=== PATIENT | female | born 1945 | race Caucasian/White ===

== ENCOUNTER → 2016-06-07 | Outpatient (CLI) | payer OTHER | LOC: FIMAGING 15:22 | PROVIDERS: ATTEND Internal Medicine | DX: Z12.31 Encounter for screening mammogram for malignant neoplasm of breast (principal); Z13.820 Encounter for screening for osteoporosis; M81.0 Age-related osteoporosis without current pathological fracture; R29.890 Loss of height; Z82.62 Family history of osteoporosis; E03.9 Hypothyroidism, unspecified; Z79.899 Other long term (current) drug therapy; Z78.0 Asymptomatic menopausal state | CPT/HCPCS: G0202 ==

== ENCOUNTER 2016-10-02 11:28 | Emergency (ER) | payer OTHER ==
--- NOTE | 2016-10-02 12:05 | EDPHY ---
HPI/HX/ROS/PE/MDM Narrative: CHIEF COMPLAINT: Left leg swelling HPI: This patient is an otherwise healthy 71-year-old female who presents to the Emergency Department complaining of left lower extremity swelling and pain beginning after she arrived home from [facility]. She complains of pain localized to her left calf with radiation superiorly to the posterior aspect of her left thigh. She denies any additional complaints; no shortness of breath or chest pain. She denies history of blood clots but does have a familial history of blood clots in mother and siblings. REVIEW OF SYSTEMS: Aside from elements discussed in the HPI, a comprehensive 10-point review of systems was reviewed and is negative. PMH: Chronic neck pain. No history of blood clots. SOCIAL HISTORY: at bedside. Just returned home from [facility]. PHYSICAL EXAM: General:Patient is alert, in no acute distress. ENT:Eyes are normal to inspection. ENT inspection normal. Neck: Normal inspection. Full range of motion. Respiratory:No respiratory distress. Breath sounds normal bilaterally. Cardiovascular: Regular rate and rhythm. Strong peripheral pulses. Normal cap refill. Abdomen:The abdomen is nontender to palpation. There are no peritoneal signs. There are normal bowel sounds. Back: Normal to inspection. No tenderness to palpation. Skin: Normal color. No rash. Warm and dry. Extremities: Full range of motion. Left lower extremity swollen and erythematous compared to right with 1+ pitting edema. Neuro: Oriented x3. Normal motor function. Normal sensory function. ED Course: 71-year-old female presents complaining of pain and swelling to her left lower extremity first presenting just after a long flight home from [facility]. Family history is positive for blood clots in mother and siblings. On exam, her left lower extremity is edematous and erythematous. She has no other significant findings on exam and denies pulmonary involvement; no SOB or chest pain. Will proceed with US of the left lower extremity. 1459: US is negative for DVT as read by Dr. Laguerre. I discussed imaging result with the patient. She will be given Ibuprofen and Tylenol instructions and plan to follow-up with her primary care provider for reevaluation. The patient is agreeable to this and will be discharged home in good condition. MDM: This patient presents with LLE swelling and mild pain after a recent long flight. Thankfully, her US is negative for DVT. The etiology of her leg symptoms is unknown, but there is no evidence of DVT, infection, arterial insufficiency or rash. We discussed strict return precautions and compression stocking usage. General Time Seen by Provider: 10/02/16 11:44 Initial Vital Signs: Initial Vital Signs Temperature (C) 36.8 C 10/02/16 11:32 Heart Rate 78 10/02/16 11:32 Respiratory Rate 16 10/02/16 11:32 Blood Pressure 118/80 10/02/16 11:32 O2 Sat (%) 95 10/02/16 11:32 O2 Delivery Mode Room Air Allergies/Adverse Reactions: meperidine HCl [From Demerol] Allergy (Unknown, Verified 10/03/16 06:57) morphine Allergy (Unknown, Verified 10/03/16 06:57) Home Medications: Medication Instructions Recorded Levothyroxine [Synthroid 100 mcg 100 mcg PO DAILY 04/19/12 (*)] Herbals/Supplements -Info Only 1 ea PO DAILY 10/03/16 Naproxen Sodium [Aleve 220 MG (*)] 220 mg PO DAILY PRN 10/03/16 Sertraline HCl [Zoloft 100mg (*)] 50 mg PO BID 10/03/16 clonazePAM [Klonopin (*)] 0.5 mg PO HS 10/03/16 Departure - Departure Disposition: Home, Routine, Self-Care Clinical Impression: Left leg swelling Condition: Good Instructions: Leg Edema (ED) Additional Instructions: 1. You should expect your swelling to improve over the next few days. I recommend that you follow-up with your primary care provider in 2-3 days for reevaluation. If you do not have a PCP, we have referred you to our on-call provider. 2. Take 600mg Ibuprofen every 6 hours as needed for swelling and pain. 3. Return to the Emergency Department with increased pain or swelling, shortness of breath, chest pain, or other serious concerns. Referrals: Luz Marina Joya MD [Medical Doctor] - As per Instructions Report Scribed for: Crispin Guido Report Scribed by: Marsha Galvez Date of Report: 10/02/16 Time of Report: 12:03 Physician Review and Approval Statement: Portions of this note were transcribed by an ED scribe. I personally performed the history, physical exam, and medical decision making; and confirm the accuracy of the information in the transcribed note.
[2016-10-02 15:09] VITALS: BP 132/79; PULSE 67; RESP 20; TEMP 97.5; O2SAT 97
== END 2016-10-02 15:09 | disposition home or self-care (01) ==
DX: M79.89 Other specified soft tissue disorders (principal)

== ENCOUNTER 2016-10-03 06:45 | Inpatient (IN) | payer OTHER ==
--- NOTE | 2016-10-03 06:57 | EDPHY ---
H & P Time Seen by Provider: 10/03/16 06:53 HPI/ROS: CHIEF COMPLAINT: Left leg pain, swelling HISTORY OF PRESENT ILLNESS: This patient is a 71 year old female complaining of left lower extremity swelling and pain onset three days ago, after returning from [facility] by plane. She was seen here yesterday for the same complaint. Lower extremity ultrasound was negative and the patient was discharged home. She was unable to sleep well last night because of moderate left leg pain. She took Aleve and elevated her leg, but the pain did not resolve. The pain radiates from her groin to her foot , and her leg becomes more red and swollen with walking. She states it is very difficult to walk due to leg pain. She denies chest pain, shortness or breath, or other associated symptoms. She denies personal history of blood clots, but does have family history of thromboembolism. REVIEW OF SYSTEMS: Constitutional: No fever, no chills Eyes: No visual changes ENT: No sore throat Respiratory: No cough, no shortness of breath Cardiac: No chest pain Gastrointestinal: no vomiting, no abdominal pain Genitourinary: no dysuria Skin: No rash Neurological: No headache, no numbness, no weakness Psychiatric: No depression Past Medical/Surgical History: Chronic neck pain Social History: Lives in own home with Smoking Status: Former smoker Physical Exam: General Appearance: Alert, pleasant, appears uncomfortable with leg movement Eyes: Pupils equal and round, no conjunctival pallor or injection ENT, Mouth: Mucous membranes moist Neck: Normal inspection Respiratory: Lungs are clear to auscultation Cardiovascular: Regular rate and rhythm Gastrointestinal: Abdomen is soft and non-tender Neurological: A&O, nonfocal, normal gait Skin: Warm and dry, no rash Extremities: Left leg diffusely edematous and tender, very slight erythema over the thigh, the leg is warm, other extremities nontender Vascular: 2+ dorsalis pedis pulse in the left lower extremity, unable to palpate the posterior tibial artery Psychiatric: Mood and affect normal Constitutional: Initial Vital Signs Temperature (C) 36.7 C 10/03/16 06:58 Heart Rate 71 10/03/16 06:58 Respiratory Rate 16 10/03/16 06:58 Blood Pressure 130/89 H 10/03/16 06:58 O2 Sat (%) 99 10/03/16 06:58 O2 Delivery Mode Room Air Allergies/Adverse Reactions: meperidine HCl [From Demerol] Allergy (Unknown, Verified 10/03/16 06:57) morphine Allergy (Unknown, Verified 10/03/16 06:57) Home Medications: Medication Instructions Recorded Levothyroxine [Synthroid 100 mcg 100 mcg PO DAILY 04/19/12 (*)] Herbals/Supplements -Info Only 1 ea PO DAILY 10/03/16 Naproxen Sodium [Aleve 220 MG (*)] 220 mg PO DAILY PRN 10/03/16 Sertraline HCl [Zoloft 100mg (*)] 50 mg PO BID 10/03/16 clonazePAM [Klonopin (*)] 0.5 mg PO HS 10/03/16 Medical Decision Making - Diagnostics Imaging Results: Imaging Impressions Extremity Venous Study 10/03/16 07:18 Impression: Deep venous thrombosis in the left external iliac and central aspect of the common femoral vein resulting in Rouleaux flow in the femoral vein. Findings discussed with Emergency Department physician, Glenna Ayala on October 03, 2016 at 8:30 a.m. ED Course/Re-evaluation: The vein access technician reviewed the ultrasound study from yesterday. The ultrasound reveals a superficial blood clot in the greater saphenous vein. I suspect this patient either has a DVT that was undetected on the prior ultrasound or that she has an arterial clot. Given that she has a warm leg and 2+ dorsalis pedis pulse, I will start with a repeat ultrasound of the left lower extremity. If the study is negative, will proceed to arteriogram. 8:[address] Laguerre, radiologist. US reveals deep venous thrombosis in the left external iliac and central aspect of the common femoral vein resulting in Rouleaux flow in the femoral vein. The patient feels too unsteady to go home due to severe left leg pain[place]. Plan to admit for further management of DVT. Lovenox 80 mg subcu given. No clinical suspicion of pulmonary embolism. 8:35 Consulted with hospitalist service. Dr. Sagastume accepts admission for DVT. Differential Diagnosis: Differential diagnosis includes does not limited to acute arterial occlusion, cellulitis, joint infection, osteomyelitis. - Data Points Laboratory Results: Laboratory Results 10/03/16 07:25 10/03/16 07:25 10/03/16 10/03/16 07:25 07:25 WBC 7.99 10^3/uL 10^3/uL (3.80-9.50) RBC 4.66 10^6/uL 10^6/uL (4.18-5.33) Hgb 14.5 g/dL g/dL (12.6-16.3) Hct 42.7 % % (38.0-47.0) MCV 91.6 fL fL (81.5-99.8) MCH 31.1 pg pg (27.9-34.1) MCHC 34.0 g/dL g/dL (32.4-36.7) RDW 12.5 % % (11.5-15.2) Plt Count 151 10^3/uL 10^3/uL (150-400) MPV 10.3 fL fL (8.7-11.7) Neut % (Auto) 66.2 % % (39.3-74.2) Lymph % (Auto) 20.9 % % (15.0-45.0) Lander % (Auto) 7.1 % % (4.5-13.0) Eos % (Auto) 4.5 % % (0.6-7.6) Baso % (Auto) 0.9 % % (0.3-1.7) Nucleat RBC Rel Count 0.0 % % (0.0-0.2) Absolute Neuts (auto) 5.29 10^3/uL 10^3/uL (1.70-6.50) Absolute Lymphs (auto) 1.67 10^3/uL 10^3/uL (1.00-3.00) Absolute Monos (auto) 0.57 10^3/uL 10^3/uL (0.30-0.80) Absolute Eos (auto) 0.36 10^3/uL 10^3/uL (0.03-0.40) Absolute Basos (auto) 0.07 10^3/uL 10^3/uL (0.02-0.10) Absolute Nucleated RBC 0.00 10^3/uL 10^3/uL (0-0.01) Immature Gran % 0.4 % % (0.0-1.1) Immature Gran # 0.03 10^3/uL 10^3/uL (0.00-0.10) Sodium 141 mEq/L mEq/L (134-144) Potassium 4.5 mEq/L mEq/L (3.5-5.2) Chloride 107 mEq/L mEq/L (97-110) Carbon Dioxide 20 mEq/l L mEq/l (22-31) Anion Gap 14 mEq/L mEq/L (8-16) BUN 20 mg/dL mg/dL (7-23) Creatinine 1.1 mg/dL H mg/dL (0.6-1.0) Estimated GFR 49 Glucose 91 mg/dL mg/dL (70-100) Calcium 9.3 mg/dL mg/dL (8.5-10.4) Medications Given: Discontinued Medications Acetaminophen (Tylenol) 650 mg PO EDNOW ONE Stop: 10/03/16 08:35 Last Admin: 10/03/16 09:04 Dose: 650 mg Enoxaparin Sodium (Lovenox) 80 mg SC EDNOW ONE Stop: 10/03/16 08:35 Last Admin: 10/03/16 10:01 Dose: 80 mg Departure - Departure Disposition: [facility] Inpatient Acute Clinical Impression: DVT (deep venous thrombosis) Qualifiers: DVT location: lower extremity Affected thrombotic vein of extremity: iliac Chronicity: acute Laterality: left Qualified Code(s): I82.422 - Acute embolism and thrombosis of left iliac vein Condition: Good Report Scribed for: Glenna Ayala Report Scribed by: Zuleyka Romero Date of Report: 10/03/16 Time of Report: 07:02 Physician Review and Approval Statement: 10/03/16 08:37 Portions of this note were transcribed by a director of medical staff services. I personally performed a history, physical exam, medical decision making, and confirmed accuracy of information the transcribed note.
[2016-10-03 07:40] LABS: % IMMATURE GRANULYOCYTES 0.4 % (0.0-1.1); ABSOLUTE IMMATURE GRANULOCYTES 0.03 10^3/uL (0.00-0.10); ADD DIFF? NO; ADD MORPH? NO; ADD SCAN? NO; ATYPICAL LYMPHOCYTE FLAG 10 (0-99); FRAGMENT RBC FLAG 0 (0-99); HEMATOCRIT 42.7 % (38.0-47.0); HEMOGLOBIN 14.5 g/dL (12.6-16.3); LEFT SHIFT FLG 0 (0-99); LIPEMIA HEMOLYSIS FLAG 90 (0-99); MEAN CELL HEMOGLOBIN 31.1 pg (27.9-34.1); MEAN CELL VOLUME 91.6 fL (81.5-99.8); MEAN PLATELET VOLUME 10.3 fL (8.7-11.7); PLATELET CLUMPS FLAG 0 (0-99); PLATELET COUNT 151 10^3/uL (150-400); RED BLOOD CELL COUNT 4.66 10^6/uL (4.18-5.33); RED CELL DISTRIBUTION WIDTH 12.5 % (11.5-15.2)
[2016-10-03 07:58] LABS: ANION GAP 14 mEq/L (8-16); CALCIUM 9.3 mg/dL (8.5-10.4); CARBON DIOXIDE 20 mEq/l (22-31); CHLORIDE 107 mEq/L (97-110); CREATININE 1.1 mg/dL (0.6-1.0); GLOMERULAR FILTRATION RATE 49; GLUCOSE 91 mg/dL (70-100); POTASSIUM 4.5 mEq/L (3.5-5.2); SODIUM 141 mEq/L (134-144)
[2016-10-03] MEDS ORDERED: ENOXAPARIN 80 MG/0.8 ML SYR SC ONE (08:34)
[2016-10-03] MEDS ORDERED: ACETAMINOPHEN 325 MG TAB PO ONE (08:34)
[2016-10-03] MEDS ORDERED: ONDANSETRON 4 MG/2 ML VIAL IVP PRN (10:43)
[2016-10-03] MEDS ORDERED: ONDANSETRON DISINTEGRATING 4 MG TAB PO PRN (10:43)
[2016-10-03] MEDS ORDERED: ACETAMINOPHEN 325 MG TAB PO PRN (10:43)
[2016-10-03] MEDS ORDERED: traMADol 50 MG TAB PO PRN (10:45)
--- NOTE | 2016-10-03 10:47 | PDGENHP ---
History and Physical - Chief Complaint LE pain and swelling - History of Present Illness 71 yo female presented to ED last night with LLE pain and swelling. She traveled home from [facility] 3 days ago. She noticed after getting off the plane , her left leg was swollen and painful. U/S yesterday was negative for DVT and she was discharged home. She returned today due to worsening pain and difficulty with ambulation. Repeat u/s today confirmed proximal LLE DVT in iliac and femoral veins. She denies CP, SOB or fevers. No abdominal pain, N/V/ D or changes in her bowel or bladder habits. Given her pain and swelling, she is admitted to the hospital for further management. History Information - Allergies/Home Medication List Allergies/Adverse Reactions: meperidine HCl [From Demerol] Allergy (Unknown, Verified 10/03/16 06:57) morphine Allergy (Unknown, Verified 10/03/16 06:57) Home Medications: Levothyroxine [Synthroid 100 mcg (*)] 100 mcg PO DAILY 04/19/12 [Last Taken 06/17] Herbals/Supplements -Info Only 1 ea PO DAILY 10/03/16 [Last Taken Unknown] Naproxen Sodium [Aleve 220 MG (*)] 220 mg PO DAILY PRN 10/03/16 [Last Taken 06/17 03:00] Sertraline HCl [Zoloft 100mg (*)] 50 mg PO BID 10/03/16 [Last Taken 10/03/16] clonazePAM [Klonopin (*)] 0.5 mg PO HS 10/03/16 [Last Taken 10/02/16] I have personally reviewed and updated: family history, medical history, social history, surgical history - Past Medical History Additional medical history: Hypothyroidism, depression/anxiety - Surgical History Additional surgical history: meniscus repair - Family History Additional family history: mom and 2 brothers with factor V leiden - Social History Smoking Status: Former smoker Alcohol Use: Rarely Drug Use: None 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 Review of Systems ROS: 10pt was reviewed & negative except for what was stated in HPI & below Physical Exam Temp Pulse Resp BP Pulse Ox 36.4 C 66 16 120/70 95 10/03/16 10:10 10/03/16 10:10 10/03/16 10:10 10/03/16 10:10 10/03/16 10:10 Constitutional: no apparent distress Eyes: PERRL Ears, Nose, Mouth, Throat: moist mucous membranes Cardiovascular: regular rate and rhythym, no murmur, rub, or gallop Respiratory: no respiratory distress, clear to auscultation Gastrointestinal: normoactive bowel sounds, soft, non-tender abdomen Skin: warm Musculoskeletal: other (LLE swelling from groin to foot. 2+ DP pulse, extremities warm, well perfused) Neurologic: AAOx3 Psychiatric: interacting appropriately Lab Data & Imaging Review 10/03/16 07:25 10/03/16 07:25 WBC 7.99 10^3/uL (3.80-9.50) 10/03/16 07:25 RBC 4.66 10^6/uL (4.18-5.33) 10/03/16 07:25 Hgb 14.5 g/dL (12.6-16.3) 10/03/16 07:25 Hct 42.7 % (38.0-47.0) 10/03/16 07:25 MCV 91.6 fL (81.5-99.8) 10/03/16 07:25 MCH 31.1 pg (27.9-34.1) 10/03/16 07:25 MCHC 34.0 g/dL (32.4-36.7) 10/03/16 07:25 RDW 12.5 % (11.5-15.2) 10/03/16 07:25 Plt Count 151 10^3/uL (150-400) 10/03/16 07:25 MPV 10.3 fL (8.7-11.7) 10/03/16 07:25 Neut % (Auto) 66.2 % (39.3-74.2) 10/03/16 07:25 Lymph % (Auto) 20.9 % (15.0-45.0) 10/03/16 07:25 Yell % (Auto) 7.1 % (4.5-13.0) 10/03/16 07:25 Eos % (Auto) 4.5 % (0.6-7.6) 10/03/16 07:25 Baso % (Auto) 0.9 % (0.3-1.7) 10/03/16 07:25 Nucleat RBC Rel Count 0.0 % (0.0-0.2) 10/03/16 07:25 Absolute Neuts (auto) 5.29 10^3/uL (1.70-6.50) 10/03/16 07:25 Absolute Lymphs (auto) 1.67 10^3/uL (1.00-3.00) 10/03/16 07:25 Absolute Monos (auto) 0.57 10^3/uL (0.30-0.80) 10/03/16 07:25 Absolute Eos (auto) 0.36 10^3/uL (0.03-0.40) 10/03/16 07:25 Absolute Basos (auto) 0.07 10^3/uL (0.02-0.10) 10/03/16 07:25 Absolute Nucleated RBC 0.00 10^3/uL (0-0.01) 10/03/16 07:25 Immature Gran % 0.4 % (0.0-1.1) 10/03/16 07:25 Immature Gran # 0.03 10^3/uL (0.00-0.10) 10/03/16 07:25 Sodium 141 mEq/L (134-144) 10/03/16 07:25 Potassium 4.5 mEq/L (3.5-5.2) 10/03/16 07:25 Chloride 107 mEq/L (97-110) 10/03/16 07:25 Carbon Dioxide 20 mEq/l (22-31) L 10/03/16 07:25 Anion Gap 14 mEq/L (8-16) 10/03/16 07:25 BUN 20 mg/dL (7-23) 10/03/16 07:25 Creatinine 1.1 mg/dL (0.6-1.0) H 10/03/16 07:25 Estimated GFR 49 10/03/16 07:25 Glucose 91 mg/dL (70-100) 10/03/16 07:25 Calcium 9.3 mg/dL (8.5-10.4) 10/03/16 07:25 Assessment & Plan Assessment: DVT (deep venous thrombosis) (Acute) - Proximal LLE. She has risk factor of long airplane ride from [place] 3 days prior to arrival. Also positive family h /o factor V Leiden. She tested negative for factor V leiden a number of years ago, though per consult with heme there is better testing now. Some concern for May Sandoval with proximal DVT. -IR consult for consideration of intra-vascular lysis -send factor V leiden mutation -Received Lovenox this am, will continue this if she decides against intervention -Discussed coumadin vs Eliquis at d/c. Pt opts for latter. -D/C Naproxen Hypothyroid - cont outpt meds Depression/Anxiety - cont zoloft and klonopin Full code Dispo - obs. If she opts for IR intervention, may require changing to inpt status tomorrow
[2016-10-03 12:03] LABS: INR 1.08 (0.83-1.16); PROTIME(PATIENT) 13.9 SEC (12.0-15.0)
[2016-10-03] MEDS ORDERED: fentaNYL 100 MCG/2 ML INJ ONE (17:04)
[2016-10-03] MEDS ORDERED: MIDAZOLAM 2 MG/2 ML VIAL ONE (17:05)
[2016-10-03] MEDS ORDERED: IOPAMIDOL (ISOVUE-300) 100 ML BTL ONE (17:27)
[2016-10-03] MEDS ORDERED: HEPARIN/DEXTROSE 25,000 UNIT/500 ML BAG ONE (17:30)
[2016-10-03] MEDS ORDERED: PROMETHAZINE HCL 25 MG/ML INJ IVP PRN (17:39)
[2016-10-03] MEDS ORDERED: LORazepam 1 MG TAB PO PRN (17:39)
--- NOTE | 2016-10-03 17:44 | POSTOPPROG ---
Post Op Note Date of Operation: 10/03/16 Surgeon: Afshan Johnson Anesthesia: IV Sedation (fentanyl and versed) Pre-op Diagnosis: LLE DVT Post-op Diagnosis: same Indication: severe leg pain with walking Procedure: venogram, tpa Lysis Findings: clotted iliac to CFV on LT. May-Thurner Syndrome Inf/Abcess present in the surg proc area at time of surgery?: No Depth: Superfical (Skin SQ) EBL: Minimal Complications: None
[2016-10-03] MEDS ORDERED: HEPARIN/DEXTROSE 500 ML IV SCH (17:45)
[2016-10-03] MEDS ORDERED: HYDROmorphONE/DILAUDID 1 MG/ML SYR IVP PRN (17:53)
[2016-10-03] MEDS ORDERED: ALTEPLASE 5 MG in NS 100 ML IVP SCH (18:00)
[2016-10-03 19:08] LABS: APTT 50.5 SEC (23.0-38.0)
[2016-10-03] MEDS: SERTRALINE HCL 100 MG TAB PO SCH (20:42)
[2016-10-03] MEDS: clonazePAM 0.5 MG TAB PO SCH (20:42)
[2016-10-03] MEDS ORDERED: ENOXAPARIN 80 MG/0.8 ML SYR SC SCH (21:00)
[2016-10-04] MEDS: ALTEPLASE 5 MG in NS 100 ML IV SCH ×2 (02:06→09:59)
[2016-10-04 05:42] LABS: % IMMATURE GRANULYOCYTES 0.4 % (0.0-1.1); ABSOLUTE IMMATURE GRANULOCYTES 0.03 10^3/uL (0.00-0.10); ADD DIFF? NO; ADD MORPH? NO; ADD SCAN? NO; ATYPICAL LYMPHOCYTE FLAG 0 (0-99); FRAGMENT RBC FLAG 0 (0-99); HEMATOCRIT 40.3 % (38.0-47.0); HEMOGLOBIN 13.8 g/dL (12.6-16.3); LEFT SHIFT FLG 0 (0-99); LIPEMIA HEMOLYSIS FLAG 90 (0-99); MEAN CELL HEMOGLOBIN 31.3 pg (27.9-34.1); MEAN CELL HEMOGLOBIN CONCENTR. 34.2 g/dL (32.4-36.7); MEAN CELL VOLUME 91.4 fL (81.5-99.8); MEAN PLATELET VOLUME 10.4 fL (8.7-11.7); PLATELET CLUMPS FLAG 0 (0-99); PLATELET COUNT 133 10^3/uL (150-400); RED BLOOD CELL COUNT 4.41 10^6/uL (4.18-5.33); RED CELL DISTRIBUTION WIDTH 12.4 % (11.5-15.2)
[2016-10-04 06:29] LABS: APTT 47.9 SEC (23.0-38.0)
[2016-10-04] MEDS: LEVOTHYROXINE 100 MCG TAB PO SCH (08:24)
[2016-10-04] MEDS: SERTRALINE HCL 100 MG TAB PO SCH ×2 (08:24→20:08)
[2016-10-04 10:59] LABS: ANION GAP 11 mEq/L (8-16); CALCIUM 8.7 mg/dL (8.5-10.4); CARBON DIOXIDE 22 mEq/l (22-31); CHLORIDE 108 mEq/L (97-110); GLOMERULAR FILTRATION RATE 55; GLUCOSE 92 mg/dL (70-100); POTASSIUM 4.4 mEq/L (3.5-5.2); SODIUM 141 mEq/L (134-144)
--- NOTE | 2016-10-04 13:07 | HOSPPROG ---
Hospitalist Progress Note Assessment/Plan: 71 yo F presenting with left leg swelling and pain after recent prolonged travel found to have extensive proximal DVT concerning for May Thurner syndrome # LLE DVT: extensive and proximal, evidence of May Thurner syndrome on venogram. TPA lysis initiated and plan for stent placement likely today. Pain and swelling continues today but improved since yesterday. Does have family hx of factor v leyden however has tested negative in the past and rechecked on arrival # August Thurner: as above had evidence of chronic narrowing and stricture of common iliac, tx as above # hypothyroid: continue home meds # depression/anxiety: euthymic, some anxiety but minimal # IP status, high risk given need for tpa driven lysis requiring ICU monitoring Patient new to my care. Old records reviewed and summarized as above. Care plan reviewed with Dr. Olivera and multidisciplinary care team on rounds. Subjective: no significant overnight events, patient anxious to have procedure completed today, she is tired of lying still Objective: Vital Signs Temp Pulse Resp BP Pulse Ox 37.0 C 84 18 125/77 H 97 10/04/16 12:00 10/04/16 12:00 10/04/16 12:00 10/04/16 12:00 10/04/16 12:00 Laboratory Results 10/04/16 05:40 10/04/16 10:35 10/03/16 10/04/16 10/05/16 05:59 05:59 05:59 Intake Total 1266 Balance 1266 PT 13.9 SEC (12.0-15.0) 10/03/16 11:49 INR 1.08 (0.83-1.16) 10/03/16 11:49 awake alert nad anicteric op clear rrr no mrg cta b to ant exam soft nt nd lle edema 2+, r no cce warm dry well perfused oriented appropriate - Time Spent With Patient Time Spent with Patient: greater than 35 minutes Time Spent with Patient: Greater than 35 minutes spent on this patients care, greater than 50% of time spent counseling, educating, and coordinating care regarding the above mentioned plan. ICD10 Worksheet Patient Problems: Problems Problem Status Onset DVT (deep venous thrombosis) Acute
[2016-10-04] MEDS ORDERED: fentaNYL 100 MCG/2 ML INJ ONE (13:16)
[2016-10-04] MEDS ORDERED: MIDAZOLAM 2 MG/2 ML VIAL ONE (13:16)
[2016-10-04] MEDS ORDERED: IOPAMIDOL (ISOVUE-300) 100 ML BTL ONE ×2 (14:04→14:55)
--- NOTE | 2016-10-04 14:28 | POSTOPPROG ---
Post Op Note Date of Operation: 10/04/16 Surgeon: Afshan Johnson Anesthesia: IV Sedation (FENTANYL AND VERSED) Pre-op Diagnosis: LLE DVT Post-op Diagnosis: same, May Thurner syndrome Indication: lysis followup Procedure: venogram, stent placement, angioplasty Findings: complete clot lysis; stenosis stented Inf/Abcess present in the surg proc area at time of surgery?: No Depth: Superfical (Skin SQ) EBL: Minimal Complications: None
[2016-10-04] MEDS: ENOXAPARIN 60 MG/0.6 ML SYR SC SCH (20:09)
[2016-10-04] MEDS: clonazePAM 0.5 MG TAB PO SCH (20:09)
[2016-10-05 08:19] VITALS: BP 135/74; PULSE 70; RESP 16; TEMP 98.3; O2SAT 97
[2016-10-05] MEDS: LEVOTHYROXINE 100 MCG TAB PO SCH (08:24)
[2016-10-05] MEDS: SERTRALINE HCL 100 MG TAB PO SCH (08:24)
[2016-10-05] MEDS: ENOXAPARIN 60 MG/0.6 ML SYR SC SCH (08:24)
--- NOTE | 2016-10-05 08:32 | SOAPPROG ---
[facility] Progress Note Assessment/Plan: Assessment: Doing well post LLE lysis and stent placement for May-Thurner Syndrome. Back on BID Lovenox. Plan: 1. Can D/C from IR standpoint. 2. Anticoagulation 3-6months. If pending hypercoagulation workup is negative, patient should be able to get off of anticoagulation with underlying cause now resolved. 10/05/16 08:30 Subjective: Much decreased pain in LLE. No complaints. Overall happy with outcome of procedure. Has tolerated PO and ambulation. Objective: Vital Signs Temp Pulse Resp BP Pulse Ox 36.8 C 70 16 135/74 H 97 10/05/16 08:00 10/05/16 08:00 10/05/16 08:00 10/05/16 08:00 10/05/16 08:00 Laboratory Results 10/04/16 05:40 10/04/16 10:35 10/04/16 10/05/16 10/06/16 05:59 05:59 05:59 Intake Total 1266 790 Balance 1266 790 PT 13.9 SEC (12.0-15.0) 10/03/16 11:49 INR 1.08 (0.83-1.16) 10/03/16 11:49 Calf swelling much better. Less tense. No bleeding. ICD10 Worksheet Patient Problems: Problems Problem Status Onset DVT (deep venous thrombosis) Acute ESBL (extended spectrum beta-lactamase) producing bacteria infection Acute ~
--- NOTE | 2016-10-05 10:42 | PDDCSUM ---
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 TPA lysis initiated and plan for stent placement likely today. Pain and swelling continues today but improved since yesterday. Does have family hx of factor v leyden however has tested negative in the past and rechecked on arrival # iliac vein occlusion: both acute and chronic occlusion, s/p angioplasty # May Thurner: as above # hypothyroid: continue home meds # depression/anxiety: euthymic, some anxiety but minimal DC home f/u with PCP, referral to hematology for follow up of hypercoagulable w/u Meds: see EHR > 45 minutes spent in dc, more than half in face to face counseling of patient and her regarding medications and follow up plan, warfarin teaching initiated
[2016-10-05] MEDS ORDERED: WARFARIN SODIUM 5 MG TAB PO SCH (16:00)
[2016-10-07 08:55] LABS: INTERPRETATION See Comments
== END 2016-10-05 11:55 | disposition home or self-care (01) | DRG 253 ==
LOC: F1N 10:07 → F2N 18:10 → OBSVTOIN 10-05 08:58
PROVIDERS: ADMIT Hospitalist; ATTEND Hospitalist
PROC: 3E03317 Introduction of Other Thrombolytic into Peripheral Vein, Percutaneous Approach (ICD-10-PCS; 2016-10-03)
PROC: 067D3DZ Dilation of Left Common Iliac Vein with Intraluminal Device, Percutaneous Approach (ICD-10-PCS; principal; 2016-10-04)
DX: I82.422 Acute embolism and thrombosis of left iliac vein (principal); I82.412 Acute embolism and thrombosis of left femoral vein; I87.1 Compression of vein; M54.2 Cervicalgia; E03.9 Hypothyroidism, unspecified; Z87.891 Personal history of nicotine dependence; F41.8 Other specified anxiety disorders; Z83.2 Family history of diseases of the blood and blood-forming organs and certain disorders involving the immune mechanism
CPT/HCPCS: C1725; C1757; C1769; C1876; C1892; G0378; J1644; J1650; J2250; J2997; J3010; Q9967

== ENCOUNTER → 2017-03-08 | Outpatient (CLI) | payer OTHER | LOC: FIMAGING 13:18 | PROVIDERS: ATTEND Registered Nurse | DX: Z86.718 Personal history of other venous thrombosis and embolism (principal); Z95.828 Presence of other vascular implants and grafts ==

== ENCOUNTER → 2017-06-21 | Outpatient (CLI) | payer OTHER | LOC: FIMAGING 07:37 | PROVIDERS: ATTEND Internal Medicine | DX: Z12.31 Encounter for screening mammogram for malignant neoplasm of breast (principal) ==

== ENCOUNTER → 2018-02-07 | Outpatient (CLI) | payer OTHER | LOC: FIMAGING 14:10 | PROVIDERS: ATTEND Internal Medicine Geriatric Medicine | DX: I82.4Z2 Acute embolism and thrombosis of unspecified deep veins of left distal lower extremity (principal) ==

== ENCOUNTER 2018-03-18 13:35 | Emergency (ER) | payer OTHER ==
--- NOTE | 2018-03-18 14:15 | EDPHY ---
H & P Stated Complaint: SOB and L arm "tingling" on and off x ~ 1 month, fatigue Time Seen by Provider: 03/18/18 13:53 HPI/ROS: CHIEF COMPLAINT: Rapid heart rate, shortness of breath HISTORY OF PRESENT ILLNESS: 72-year-old female presents with a 2 week history of intermittent rapid heart rate and shortness of breath. The rapid heart rate is intermittent, lasts several seconds and is associated with shortness of breath. No obvious alleviating or aggravating factors. No associated chest discomfort or dizziness. She has also had intermittent tingling in the left upper extremity, associated with left-sided upper back pain. The symptoms seem to be different from the shortness of breath and she has been seen at [facility]. MRI of the thoracic spine has been performed, but she does not have the results yet. History of DVT several years ago after prolonged travel. Not on anticoagulants. REVIEW OF SYSTEMS: complete 10 point ROS reviewed and is negative except for the noted elements in the HPI - Medical/Surgical History Hx Asthma: No Hx Chronic Respiratory Disease: No Hx Diabetes: No Hx Cardiac Disease: No Hx Renal Disease: No Hx Cirrhosis: No Hx Alcoholism: No Hx HIV/AIDS: No Hx Splenectomy or Spleen Trauma: No Other PMH: PSH: appy; L arm plate. 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 - Social History Smoking Status: Former smoker Alcohol Use: Sober Drug Use: None - Physical Exam Exam: General Appearance: Alert, pleasant Eyes: Pupils equal and round, no conjunctival pallor ENT, Mouth: Mucous membranes moist Neck: Normal inspection Respiratory: Lungs are clear to auscultation Cardiovascular: Regular rate and rhythm, no murmur Gastrointestinal: Abdomen is soft and nontender Neurological: A&O, nonfocal, normal gait Skin: Warm and dry, no rash Extremities: Nontender, no pedal edema Psychiatric: Mood and affect normal Constitutional: Initial Vital Signs Temperature (C) 36.6 C 03/18/18 13:40 Heart Rate 79 03/18/18 13:40 Respiratory Rate 18 03/18/18 13:40 Blood Pressure 118/70 03/18/18 13:40 O2 Sat (%) 97 03/18/18 13:40 O2 Delivery Mode Room Air Allergies/Adverse Reactions: meperidine HCl [From Demerol] Allergy (Unknown, Verified 10/03/16 06:57) morphine Allergy (Unknown, Verified 10/03/16 06:57) Home Medications: Medication Instructions Recorded Levothyroxine 03/18/18 Sertraline HCl 03/18/18 Medical Decision Making - Diagnostics EKG Interpretation: EKG interpreted by me reveals normal sinus rhythm, rate 68, LAD, no ST or T segment changes. Interpretation: Otherwise normal EKG. Imaging Results: Chest X-Ray 03/18/18 13:58 Impression: Nothing acute. Imaging: I viewed and interpreted images myself ED Course/Re-evaluation: This patient presents with intermittent palpitations and shortness of breath. Vital signs are normal and she is currently in normal sinus rhythm. Stat EKG reveals no evidence of ischemia or dysrhythmia. Laboratory tests are unremarkable, as is chest x-ray. 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 The patient ambulated throughout the emergency department and maintained a normal oxygen saturation of 96% on room air. Feel that she is safe and stable for discharge home. She will follow up as previously scheduled with [facility] tomorrow. Differential Diagnosis: Differential diagnosis includes though it is not limited to pneumonia, pneumothorax, pulmonary embolism, aortic dissection, pericarditis, acute coronary syndrome. - Data Points Laboratory Results: Laboratory Results 03/18/18 13:59 03/18/18 13:59 Point of Care Test Results: Chemistry 03/18/18 14:03 POC Troponin I 0.01 ng/mL ng/mL (0.00-0.08) Departure - Departure Disposition: Home, Routine, Self-Care Clinical Impression: Palpitations Dyspnea Qualifiers: Dyspnea type: shortness of breath Qualified Code(s): R06.02 - Shortness of breath; R06.00 - Dyspnea, unspecified; R06.01 - Orthopnea Condition: Good Instructions: Heart Palpitations (ED), Dyspnea (ED) Additional Instructions: Return for worsening symptoms or any concerns. Follow-up with [facility] tomorrow as previously scheduled. Referrals: Gilles Hayes MD [[facility] Primary Care Provider] - As per Instructions
[2018-03-18 14:16] LABS: PLATELET COUNT 223 10^3/uL (150-400)
[2018-03-18 15:10] VITALS: BP 126/83
--- NOTE | 2018-03-18 21:01 | CPEKG ---
Test Reason : OPEN Blood Pressure : / mmHG Vent. Rate : 068 BPM Atrial Rate : 068 BPM P-R Int : 130 ms QRS Dur : 089 ms QT Int : 401 ms P-R-T Axes : 050 -36 028 degrees QTc Int : 427 ms Sinus rhythm Left axis deviation Confirmed by Glenna Ayala ([id number]) on 03/18/2018 9:00:55 PM Referred By: Confirmed By:Glenna Ayala
== END 2018-03-18 15:24 | disposition home or self-care (01) ==
DX: R00.0 Tachycardia, unspecified (principal); R06.02 Shortness of breath; R06.01 Orthopnea; Z87.891 Personal history of nicotine dependence
CPT/HCPCS: 84484-PO

== ENCOUNTER → 2018-04-11 | Outpatient (CLI) | payer OTHER | LOC: BHFA 10:45 | PROVIDERS: ATTEND Internal Medicine Cardiovascular Disease | DX: R06.02 Shortness of breath (principal) ==

== ENCOUNTER → 2018-08-20 | Outpatient (CLI) | payer OTHER | LOC: BMCIMAGING 08:52 | PROVIDERS: ATTEND Internal Medicine Geriatric Medicine | DX: Z12.31 Encounter for screening mammogram for malignant neoplasm of breast (principal); Z13.820 Encounter for screening for osteoporosis; M80.08XD Age-related osteoporosis with current pathological fracture, vertebra(e), subsequent encounter for fracture with routine healing; M43.16 Spondylolisthesis, lumbar region; T82.898A Other specified complication of vascular prosthetic devices, implants and grafts, initial encounter; Z79.899 Other long term (current) drug therapy; Z80.3 Family history of malignant neoplasm of breast; Z78.0 Asymptomatic menopausal state ==

== ENCOUNTER 2018-09-23 10:43 | Emergency (ER) | payer OTHER | END 2018-09-23 13:52 | disposition home or self-care (01) ==